=== PATIENT | female | born 1995 | race Native Hawaiian/Other Pacific Islander ===

== ENCOUNTER 2018-12-01 16:22 | Emergency (ER) | payer OTHER, SELFPAY ==
--- NOTE | 2018-12-01 16:24 | ED_ITS ---
HPI - <Vickey Duffy DO - Last Filed: 12/02/18 07:47> General Chief complaint: OB/Uterine Contractions Stated complaint: 5wks preg,passed a clot this morning Time Seen by Provider: 12/01/18 16:24 Source: patient and family Mode of arrival: Ambulatory Limitations: no limitations History of Present Illness HPI Narrative: 23-year-old female nonsmoker presents with her for e valuation of vaginal bleeding with small clots this morning. She is a at 5 weeks and had a miscarriage in April. She denies any fever chills and is not dizzy nor weak or lightheaded. She denies any cramping or pain. She states she had a beta quantitative HCG few days ago when it measured just over 200. She [facility] her [facility] [place] due to difficulty becoming pregn ant Complaint: vaginal bleeding Onset (ago): minute(s) Relieving factors: none Exacerbating factors: none Associated symptoms: denies other symptoms Vaginal discharge: none Vaginal bleeding: light and clots OB History - Current : no complications OB History - Previous Pregnancies: miscarriage care: followed by OB Review of Systems <Vickey Duffy DO - Last Filed: 12/02/18 07:47> Constitutional Constitutional: Denies chills, Denies fatigue, Denies fever(s), Denies frequent falls, Denies lethargy and Denies weakness Eyes Eyes: Denies change in vision, Denies eye discharge, Denies irritation and Denies loss of vision ENT Ears, Nose, Mouth, and Throat: Denies change in voice, Denies dizziness, Denies neck pain, Denies sore throat and Denies throat swelling Cardiovascular Cardiovascular: Denies chest pain, Denies irregular heart rhythm, Denies lightheadedness, Denies palpitations, Denies dyspnea, Denies dyspnea on exertion and Denies orthopnea Respiratory Respiratory: Denies cough, Denies dyspnea, Denies dyspnea on exertion and Denies wheezing Gastrointestinal Gastrointestinal: Denies abdominal pain, Denies change in bowel habits, Denies diarrhea, Denies nausea and Denies vomiting Genitourinary Genitourinary: Reports abnormal vaginal bleeding, Denies hematuria, Denies flank pain, Denies urinary incontinence and Denies urinary urgency Musculoskeletal Musculoskeletal: Denies back pain, Denies muscle weakness, Denies neck pain, Denies numbness and Denies tingling Integumentary/Breasts Skin/Breast: Denies pruritus, Denies erythema, Denies rash and Denies wounds Neurologic Neurologic: Denies behavioral changes, Denies confusion, Denies dizziness, Denies frequent falls, Denies loss of vision, Denies numbness, Denies tingling and Denies weakness Psychiatric Psychiatric: Denies anxiety, Denies behavioral changes, Denies confusion, Denies depression, Denies homicidal ideation and Denies suicidal ideation Endocrine Endocrine: Denies fatigue, Denies flushing and Denies palpitations Hematologic/Lymphatic Hematologic/Lymphatic: Denies easy bruising Allergic/Immunologic Allergic/Immunologic: Denies urticaria, Denies throat swelling and Denies wheezing PMFSH - <Vickey Duffy DO - Last Filed: 12/02/18 07:47> Past Medical History Medical history: Reports non-contributory Surgical history: Reports non-contributory Psychiatric history: Reports no psych history Family History Family history: Reports no significant family history Exam <Vickey Duffy DO - Last Filed: 12/02/18 07:47> Narrative Exam Narrative: GENERAL: [23] year old patient appears stated age. Well-nouris hed, well-developed patient, in mild distress. In good spirits, no suggestion of pain. Good color. HEAD: Atraumatic. Normocephalic. EYES: Pupils equal round and reactive. Extraocular motions intact. No scleral icterus. No injection or drainage. ENT: Nose without bleeding, purulent drainage. Throat without erythema, tonsillar hypertrophy or exudate. Airway patent. NECK: Trachea midline. Non tender CARDIOVASCULAR: Regular rate and rhythm without murmurs, gallops, or rubs. RESPIRATORY: Clear to auscultation. Breath sounds equal bilaterally. No wheezes, rales, or rhonchi. GASTROINTESTINAL: Abdomen soft, non-tender, nondistended. EXTREMITIES: No edema or joint tenderness. BACK: Nontender without deformity or crepitance. No flank tenderness. NEURO: AOx3. SKIN: No rash or erythema of visible areas Initial Vital Signs Initial Vital Signs: Vital Signs Temperature 97.9 F 12/01/18 16:43 Pulse Rate 92 H 12/01/18 16:43 Respiratory Rate 13 12/01/18 16:43 Blood Pressure 128/90 12/01/18 16:43 Pulse Oximetry 99 09/21/19 16:43 <Bola Ewing DO - Last Filed: 12/01/18 20:56> Initial Vital Signs Initial Vital Signs: Vital Signs Temperature 97.9 F 12/01/18 16:43 Pulse Rate 92 H 12/01/18 16:43 Respiratory Rate 13 12/01/18 16:43 Blood Pressure 128/90 12/01/18 16:43 Pulse Oximetry 99 12/01/18 16:43 Course <Vickey Duffy DO - Last Filed: 12/02/18 07:47> Orders Ordered: ED Orders 12/01/18 16:44 US OB <= 14 weeks fetus Stat 12/01/18 18:18 ABO RH Type Stat Complete Blood Count AUTO DIFF Stat HCG Quantitative Stat 12/01/18 18:55 UA dip and micro [Urinalysis and Microscopic] Stat Vital Signs Vital signs: Vital Signs - 8 hr 12/01/18 16:43 Temperature 97.9 F Pulse Rate 92 H Respiratory Rate 13 Blood Pressure 128/90 Pulse Oximetry 99 <Bola Ewing DO - Last Filed: 12/01/18 20:56> Orders Ordered: ED Orders 12/01/18 16:44 US OB <= 14 weeks fetus Stat 12/01/18 18:18 ABO RH Type Stat Complete Blood Count AUTO DIFF Stat HCG Quantitative Stat 12/01/18 18:55 UA dip and micro [Urinalysis and Microscopic] Stat Vital Signs Vital signs: Vital Signs - 8 hr 12/01/18 16:43 Temperature 97.9 F Pulse Rate 92 H Respiratory Rate 13 Blood Pressure 128/90 Pulse Oximetry 99 MDM - OB/Uterine Contractions <Vickey Duffy DO - Last Filed: 12/02/18 07:47> Lab Data Result diagrams: 12/01/18 18:18 Labs: Lab Results 12/01/18 12/01/18 12/01/18 Range/Units 18:18 18:18 18:18 WBC 10.6 (4.5-11.0) X10^3/uL RBC 4.93 (4.0-5.2) X10^6/uL Hgb 13.6 (12.0-16.0) g/dL Hct 41.0 (36-46) % MCV 83.1 (80-100) fL MCH 27.5 (26-34) PG MCHC 33.2 (30-36) % RDW 13.1 (11.6-14.8) % Plt Count 383 (150-400) X10^3/uL Neut % (Auto) 64.7 (50-75) % Lymph % (Auto) 27.4 (25-40) % [place] % (Auto) 5.9 (3-14) % Eos % (Auto) 1.7 L (2-4) % Baso % (Auto) 0.3 (0-2) % Neut # (Auto) 6900 (3498-6579) /uL Lymph # (Auto) 2900 (1720-3099) /uL [place] # (Auto) 600 (0-900) /uL Eos # (Auto) 200 (0-450) /uL Baso # (Auto) 0 (0-100) /uL HCG, Quant 547.11 mIU/mL Urine Color Urine Appearance Urine pH (4.5-8.0) Ur Specific [place] (1.000-1.035) Urine Protein (Negative) Urine Glucose (UA) (Negative) g/dL Urine Ketones (NEGATIVE) Urine Occult Blood (Negative) Urine Nitrate (Negative) Urine Bilirubin (NEGATIVE) Urine Urobilinogen (0.2) E.U./dL Ur Leukocyte Esterase (NEGATIVE) Urine RBC (0-5/HPF) Urine WBC (0-5/HPF) Ur Squamous Epith Cells (0-5/HPF) Amorphous Sediment Urine Bacteria (None) Ur Culture Indicated? Blood Type O Positive 12/01/18 Range/Units 18:55 WBC (4.5-11.0) X10^3/uL RBC (4.0-5.2) X10^6/uL Hgb (12.0-16.0) g/dL Hct (36-46) % MCV (80-100) fL MCH (26-34) PG MCHC (30-36) % RDW (11.6-14.8) % Plt Count (150-400) X10^3/uL Neut % (Auto) (50-75) % Lymph % (Auto) (25-40) % [place] % (Auto) (3-14) % Eos % (Auto) (2-4) % Baso % (Auto) (0-2) % Neut # (Auto) (1591-0978) /uL Lymph # (Auto) (0633-9271) /uL [place] # (Auto) (0-900) /uL Eos # (Auto) (0-450) /uL Baso # (Auto) (0-100) /uL HCG, Quant mIU/mL Urine Color Yellow Urine Appearance Clear Urine pH 7.5 (4.5-8.0) Ur Specific [place] 1.015 (1.000-1.035) Urine Protein Negative (Negative) Urine Glucose (UA) Negative (Negative) g/dL Urine Ketones Negative (NEGATIVE) Urine Occult Blood Trace-lysed (Negative) Urine Nitrate Negative (Negative) Urine Bilirubin Negative (NEGATIVE) Urine Urobilinogen 0.2 (0.2) E.U./dL Ur Leukocyte Esterase Negative (NEGATIVE) Urine RBC 1-5/hpf (0-5/HPF) Urine WBC 0-1/hpf (0-5/HPF) Ur Squamous Epith Cells 5-10 /hpf H (0-5/HPF) Amorphous Sediment 1+ Urine Bacteria None seen (None) Ur Culture Indicated? Cult not indicated Blood Type Imaging Data Pelvic US: Radiologist's impression: [place] [address] Ultrasound Report Signed Patient: [facility] Wilson [facility]#: [id number] : 1995Acct:[id number] Age/Sex: 23 / FDate of Service: 12/01/18 Loc: ED Accession Number: [id number] Procedure: US OB <= 14 weeks fetus Ordering Provider: Vickey Duffy D.O. PROCEDURE: US OB <= 14 WEEKS FETUS INDICATIONS: AT 5 WEEKS WITH BLEEDING OUTSIDE/PRIOR DATING DATA: Last menstrual period (LMP): 10/27/18. LMP-based estimated date of delivery (KATIE): 08/03/19. First dating scan (date and location): 12/01/18. Estimated date of delivery (KATIE) from first dating scan: 08/03/19. TECHNIQUE: Real-time scanning was performed of the fetus and maternal pelvic organs, with image documentation. Endovaginal scanning was also performed to better visualize the fetus and maternal ovaries. COMPARISON: None. FINDINGS: Embryo: An intrauterine gestational sac is seen within the fundus of the uterus, with a mean gestational sac diameter 3 mm, which corresponds to an estimated gestational age of 5 weeks 0 days. No pole is seen at this time. Measurement variability in dating: +/- 4 weeks by LMP, +/- 7 days by mean sac diameter (use before 6 weeks gestation if crown-rump length not able to be measured), +/- 5 days by crown-rump length (up to 8 weeks 6 days gestation), +/- 7 days by crown-rump length (up to 13 weeks 6 days gestation). Maternal organs: A small amount of free pelvic fluid can be seen. Ovaries are unremarkable, with a left corpus luteum and a right ovary dominant follicle. Limited images through the kidneys demonstrate no hydronephrosis. IMPRESSION: An apparent intrauterine gestational sac is seen. No significant discrepancy is found between the estimated gestational age based on these images and the estimated gestational age based upon the given date of the last menstrual period. Free fluid can be seen within the pelvis. Differential diagnosis includes an ectopic with a pseudo-gestational sac. Close clinical followup, with serial beta-hCG and serial ultrasound are michael mmended, as clinically appropriate. Dictated by: Jonathon Lau M.D. on 12/01/2018 at 17:57 Approved by: Jonathon Lau M.D. on 12/01/2018 at 18:00 <Bola Ewing DO - Last Filed: 12/01/18 20:56> Lab Data Labs: Lab Results 12/01/18 12/01/18 12/01/18 Range/Units 18:18 18:18 18:18 WBC 10.6 (4.5-11.0) X10^3/uL RBC 4.93 (4.0-5.2) X10^6/uL Hgb 13.6 (12.0-16.0) g/dL Hct 41.0 (36-46) % MCV 83.1 (80-100) fL MCH 27.5 (26-34) PG MCHC 33.2 (30-36) % RDW 13.1 (11.6-14.8) % Plt Count 383 (150-400) X10^3/uL Neut % (Auto) 64.7 (50-75) % Lymph % (Auto) 27.4 (25-40) % [place] % (Auto) 5.9 (3-14) % Eos % (Auto) 1.7 L (2-4) % Baso % (Auto) 0.3 (0-2) % Neut # (Auto) 6900 (8027-5950) /uL Lymph # (Auto) 2900 (6245-0172) /uL [place] # (Auto) 600 (0-900) /uL Eos # (Auto) 200 (0-450) /uL Baso # (Auto) 0 (0-100) /uL HCG, Quant 547.11 mIU/mL Urine Color Urine Appearance Urine pH (4.5-8.0) Ur Specific [place] (1.000-1.035) Urine Protein (Negative) Urine Glucose (UA) (Negative) g/dL Urine Ketones (NEGATIVE) Urine Occult Blood (Negative) Urine Nitrate (Negative) Urine Bilirubin (NEGATIVE) Urine Urobilinogen (0.2) E.U./dL Ur Leukocyte Esterase (NEGATIVE) Urine RBC (0-5/HPF) Urine WBC (0-5/HPF) Ur Squamous Epith Cells (0-5/HPF) Amorphous Sediment Urine Bacteria (None) Ur Culture Indicated? Blood Type O Positive 12/01/18 Range/Units 18:55 WBC (4.5-11.0) X10^3/uL RBC (4.0-5.2) X10^6/uL Hgb (12.0-16.0) g/dL Hct (36-46) % MCV (80-100) fL MCH (26-34) PG MCHC (30-36) % RDW (11.6-14.8) % Plt Count (150-400) X10^3/uL Neut % (Auto) (50-75) % Lymph % (Auto) (25-40) % [place] % (Auto) (3-14) % Eos % (Auto) (2-4) % Baso % (Auto) (0-2) % Neut # (Auto) (1498-2039) /uL Lymph # (Auto) (8192-9277) /uL [place] # (Auto) (0-900) /uL Eos # (Auto) (0-450) /uL Baso # (Auto) (0-100) /uL HCG, Quant mIU/mL Urine Color Yellow Urine Appearance Clear Urine pH 7.5 (4.5-8.0) Ur Specific [place] 1.015 (1.000-1.035) Urine Protein Negative (Negative) Urine Glucose (UA) Negative (Negative) g/dL Urine Ketones Negative (NEGATIVE) Urine Occult Blood Trace-lysed (Negative) Urine Nitrate Negative (Negative) Urine Bilirubin Negative (NEGATIVE) Urine Urobilinogen 0.2 (0.2) E.U./dL Ur Leukocyte Esterase Negative (NEGATIVE) Urine RBC 1-5/hpf (0-5/HPF) Urine WBC 0-1/hpf (0-5/HPF) Ur Squamous Epith Cells 5-10 /hpf H (0-5/HPF) Amorphous Sediment 1+ Urine Bacteria None seen (None) Ur Culture Indicated? Cult not indicated Blood Type MDM Narrative Medical decision making narrative: Received turned over from day provider. Reviewed patient's history and physical exam. Her ultrasound today shows a gestational sac but no yolk sac. This does correspond with a HCG quantitative level in the mid 500s. She states that a couple days ago her HCG quant was in the mid 200s. This does seem to have doubled over the past 2 days. I did not have this prior labs to review. She no longer has any bleeding. She did requi re fertility treatments in order to get . She has an appointment scheduled on Monday for repeat HCG already scheduled by her primary provider. We did discuss strict return precautions. We will have her keep that appointment on Monday to see if her hCG is appropriately elevating. Patient expressed understanding and agreement. She is Rh positive no indication for RhoGAM. Discharge Plan Departure Patient Disposition: Home Clinical Impression: Vaginal bleeding affecting early Discharge Date/Time: 12/01/18 20:55 Instructions: DI for -- Discomforts and Remedies Activity Restrictions/Additional Instructions: *You have been diagnosed with [vaginal bleeding in 1st trimester] *What to do: *Take medications as directed *Follow up with your primary care provider in 2-3 days, call for an appointment. Let them know you were seen in the Emergency Department and that we ask that you be seen in follow up *Return to ER if you should have any new, worsening or concerning symptoms, such as [pelvic pain, increased bleeding, fever over 101 or other bothersome symptoms] Your HCG quant today 12/01/2018 was 547. Keep your appointment that you have f or lab draw on Monday like we discussed.
[2018-12-01 16:43] VITALS: BP 128/90; PULSE 92; RESP 13; TEMP 36.6; O2SAT 99
--- NOTE | 2018-12-01 16:44 | DI.US.S_ITS ---
PROCEDURE: US OB <= 14 WEEKS FETUS INDICATIONS: AT 5 WEEKS WITH BLEEDING OUTSIDE/PRIOR DATING DATA: Last menstrual period (LMP): 10/27/18. LMP-based estimated date of delivery (KATIE): 08/03/19. First dating scan (date and location): 12/01/18. Estimated date of delivery (KATIE) from first dating scan: 08/03/19. TECHNIQUE: Real-time scanning was performed of the fetus and maternal pelvic organs, with image documentation. Endovaginal scanning was also performed to better visualize the fetus and maternal ovaries. COMPARISON: None. FINDINGS: Embryo: An intrauterine gestational sac is seen within the fundus of the uterus, with a mean gestational sac diameter 3 mm, which corresponds to an estimated gestational age of 5 weeks 0 days. No pole is seen at this time. Measurement variability in dating: +/- 4 weeks by LMP, +/- 7 days by mean sac diameter (use before 6 weeks gestation if crown-rump length not able to be measured), +/- 5 days by crown-rump length (up to 8 weeks 6 days gestation), +/- 7 days by crown-rump length (up to 13 weeks 6 days gestation). Maternal organs: A small amount of free pelvic fluid can be seen. Ovaries are unremarkable, with a left corpus luteum and a right ovary dominant follicle. Limited images through the kidneys demonstrate no hydronephrosis. IMPRESSION: An apparent intrauterine gestational sac is seen. No significant discrepancy is found between the estimated gestational age based on these images and the estimated gestational age based upon the given date of the last menstrual period. Free fluid can be seen within the pelvis. Differential diagnosis includes an ectopic with a pseudo-gestational sac. Close clinical followup, with serial beta-hCG and serial ultrasound are recommended, as clinically appropriate. Dictated by: Jonathon Lau M.D. on 12/01/2018 at 17:57 Approved by: Jonathon Lau M.D. on 12/01/2018 at 18:00
--- NOTE | 2018-12-01 17:07 | PC.NURSE ---
pt reports, she is 5 weeks , (+home test and +blood test) this afternoon, pt noticed large vaginal blood clot, concern for miscarrying, denies fever,vomiting, or pain. only has vaginal bleeding when wiping.
[2018-12-01 18:37] LABS: Add Manual Diff / Slide Review NO; Basophils Absolute Auto 0 /uL (0-100); Basophils Percent Auto 0.3 % (0-2); Eosinophils Absolute Auto 200 /uL (0-450); Eosinophils Percent Auto 1.7 % (2-4); Hemoglobin 13.6 g/dL (12.0-16.0); Lymphocytes Absolute Auto 2900 /uL (1100-4500); Lymphocytes Percent Auto 27.4 % (25-40); Mean Corpuscular HGB Conc 33.2 % (30-36); Mean Corpuscular Hemoglobin 27.5 PG (26-34); Mean Corpuscular Volume 83.1 fL (80-100); Monocytes Absolute Auto 600 /uL (0-900); Monocytes Percent Auto 5.9 % (3-14); Neutrophils Absolute Auto 6900 /uL (1500-7000); Neutrophils Percent Auto 64.7 % (50-75); Platelet Count 383 X10^3/uL (150-400); Red Blood Cell Count 4.93 X10^6/uL (4.0-5.2); Red Cell Distribution Width 13.1 % (11.6-14.8); White Blood Cell Count 10.6 X10^3/uL (4.5-11.0)
[2018-12-01 18:58] LABS: HCG Quantitative /Beta subunit 547.11 mIU/mL
[2018-12-01 19:52] LABS: Appearance Urine UA CLEAR; Bacteria Urine None Seen; Bilirubin Urine UA NEGATIVE (NEGATIVE); Color Urine UA YELLOW; Glucose Urine UA NEGATIVE (Negative); Ketones Urine UA NEGATIVE (NEGATIVE); Leukocyte Esterase Urine UA NEGATIVE (NEGATIVE); Nitrite Urine UA NEGATIVE (Negative); Occult Blood Urine UA TRACE-LYSED (Negative); Protein Urine UA NEGATIVE (Negative); Specific Gravity Urine UA 1.015 (1.000-1.035); Urobilinogen Urine UA 0.2 E.U./dL (0.2)
[2018-12-01 20:29] LABS: Amorphous Sediment Urine 1+; WBC Urine 0-1/HPF (0-5/HPF)
[2018-12-01 20:30] LABS: Culture Indicated Urine Cult Not Indicated; RBC Urine 1-5/HPF (0-5/HPF); Squamous Epithelial Cell Urine 5-10 /HPF (0-5/HPF); pH Urine UA 7.5 (4.5-8.0)
[2018-12-01 20:53] VITALS: BP 118/75; PULSE 82; RESP 16; O2SAT 97
== END 2018-12-01 20:55 | disposition home or self-care (01) ==
PROVIDERS: Emergency Medicine; Emergency Provider Emergency Medicine
DX: O20.9 Hemorrhage in early pregnancy, unspecified (principal)
CPT/HCPCS: 36415; 76801; 76830; 81001; 84702; 85025; 86900; 86901; 99282; 99284

== ENCOUNTER 2018-12-28 11:00 | Emergency (ER) | payer OTHER, SELFPAY ==
[2018-12-28 11:14] VITALS: BP 117/64; PULSE 64; RESP 18; TEMP 36.3; O2SAT 100; BMI 36.8
--- NOTE | 2018-12-28 11:23 | ED.PREGNANCY ---
HPI - General Chief complaint: Urogenital-Female Stated complaint: 8 wks , had a gushing Time Seen by Provider: 12/28/18 11:05 Source: patient Mode of arrival: Ambulatory Limitations: no limitations History of Present Illness HPI Narrative: Patient is a 23-year-old female currently 8 weeks is presenting with gush of clear watery vaginal discharge. She has no blood she has very minimal cramping. She has been trying very hard to get they were talking about I URI and IV after however this is spontaneous now actual . She was instructed by her OB to come to the ED if she should have any abnormal discharge. She otherwise is feeling very hungry slightly nauseous no vomiting. Related Data Home Medications Medication Instructions Recorded Confirmed PNV cmb#95-ferrous fumarate-FA 1 tab PO DAILY 12/28/18 12/28/18 [] levothyroxine [Synthroid] 50 mcg PO DAILY 12/28/18 12/28/18 metformin 1,000 mg PO BID 12/28/18 penicillin G benzathine [Bicillin 0 unit IM .ONCE 12/28/18 12/28/18 L-A] Allergies Allergy/AdvReac Type Severity Reaction Status Date / Time No Known Drug Allergies Allergy Verified 12/28/18 11:14 Review of Systems Review of Systems Narrative: GENERAL: Denies chills, fatigue, malaise, fever, sweats, travel HEENT: Denies sinus pain, ear pain, sore throat, difficulty swallowing, neck pain RESPIRATORY: Denies dyspnea, cough, wheezing, hemoptysis, sputum. CARDIOVASCULAR: Denies chest pain, palpitations, orthopnea, edema GASTROINTESTINAL: Denies nausea, vomiting, abdominal pain, diarrhea, constipation, melena. 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 MUSCULOSKELETAL: Denies weakness, joint pain, or bony pain SKIN: No rash, no erythema, no pruritus NEUROLOGIC: Denies weakness, dizziness, headache, numbness, change in speech, confusion PSYCHIATRIC: No concerning psychosocial issues. 12 point review of systems is negative except for those stated above and HPI PMFSH - Past Medical History Medical history: Reports non-contributory Surgical history: Reports non-contributory Psychiatric history: Reports no psych history Family History Family history: Reports no significant family history Exam Initial Vital Signs Initial Vital Signs: Vital Signs Temperature 97.4 F L 12/28/18 11:14 Pulse Rate 64 12/28/18 11:14 Respiratory Rate 18 12/28/18 11:14 Blood Pressure 117/64 12/28/18 11:14 Pulse Oximetry 100 12/28/18 11:14 GENERAL: Well-appearing, well-nourished and in no acute distress. HEENT: Head atraumatic,EOMI, pupils reactive, face symmetric, moist mucous membranes CARDIOVASCULAR: Regular rate and rhythm without murmurs, rubs or gallops. RESPIRATORY: Breath sounds equal bilaterally, no wheezes rales or rhonchi. ABDOMEN: Soft, nontender. Normoactive bowel sounds all 4 quadrants. No guarding or rebound. EXTREMITIES: Normal range of motion, no clubbing or edema. Neurovascularly intact NEUROLOGICAL: Alert and oriented x4.Normal gait and speech. Cranial nerves II through XII grossly intact. SKIN: Warm, dry, no laceration, no petechiae, no rashes or lesions. Course Orders Ordered: ED Orders 12/28/18 11:34 Urinalysis and Microscopic Stat Vital Signs Vital signs: Vital Signs - 8 hr 12/28/18 11:14 12/28/18 12:06 Temperature 97.4 F L Pulse Rate 64 86 Respiratory Rate 18 20 Blood Pressure 117/64 100/68 Pulse Oximetry 100 100 MDM - OB/Uterine Contractions Lab Data Labs: Lab Results 12/28/18 Range/Units 11:34 Urine Color Yellow Urine Appearance Clear Urine pH 6.0 (4.5-8.0) Ur Specific [place] 1.015 (1.000-1.035) Urine Protein Negative (Negative) Urine Glucose (UA) Negative (Negative) g/dL Urine Ketones 2+ H (NEGATIVE) Urine Occult Blood Negative (Negative) Urine Nitrate Negative (Negative) Urine Bilirubin Negative (NEGATIVE) Urine Urobilinogen 0.2 (0.2) E.U./dL Ur Leukocyte Esterase Negative (NEGATIVE) Urine RBC None seen (0-5/HPF) Urine WBC None seen (0-5/HPF) Urine Bacteria None seen (None) Ur Culture Indicated? Cult not indicated Micro UA Comment Microscopic normal Point of Care Testing Test Results Positive Urine Dip Bedside Urine Glucose Negative Bedside Urine Bilirubin - Negative Bedside Urine Ketone +++ 80 Urine Specific [place] 1.020 Bedside Urine Occult Blood - Negative Bedside Urine pH 6.0 Bedside Urine Protein - Negative Bedside Urine Urobilinogen - Negative Bedside Urine Nitrite - Negative Bedside Urine Leukocytes - Negative Esterase MDM Narrative Medical decision making narrative: The patient has absolutely no vaginal bleeding no cramping. She was offered ultrasound she had 1 last week and has another one in 2 weeks with her OB. No sign of UTI. Discharge Plan Departure Patient Disposition: Home Clinical Impression: Qualifiers: Weeks of gestation: 8 weeks Qualified Code(s): Z3A.08 - 8 weeks gestation of Discharge Date/Time: 12/28/18 12:06 Activity Restrictions/Additional Instructions: *You have been diagnosed with *What to do: No sign infection *Continue to take medications as directed *Follow up with your primary care provider in 2-3 days *Return to ER if you should have vaginal bleeding, abdominal cramping or any new, worsening or concerning symptoms Prescriptions: No Action levothyroxine [Synthroid] 50 mcg tablet 50 mcg PO DAILY RF: 0 metformin 1,000 mg tablet 1,000 mg PO BID RF: 0 Bicillin L-A 1,200,000 unit/2 mL syringe 0 unit IM .ONCE RF: 0 PNV cmb#95-ferrous fumarate-FA [] 28 mg iron- 800 mcg tablet 1 tab PO DAILY RF: 0
[2018-12-28 12:04] LABS: Bacteria Urine None Seen; RBC Urine None Seen (0-5/HPF); WBC Urine None Seen (0-5/HPF)
[2018-12-28 12:06] VITALS: BP 100/68; PULSE 86; RESP 20; O2SAT 100
[2018-12-28 12:06] LABS: Appearance Urine UA CLEAR; Bilirubin Urine UA NEGATIVE (NEGATIVE); Color Urine UA YELLOW; Glucose Urine UA NEGATIVE (Negative); Ketones Urine UA 2+ (NEGATIVE); Leukocyte Esterase Urine UA NEGATIVE (NEGATIVE); Nitrite Urine UA NEGATIVE (Negative); Occult Blood Urine UA NEGATIVE (Negative); Protein Urine UA NEGATIVE (Negative); Specific Gravity Urine UA 1.015 (1.000-1.035); Urobilinogen Urine UA 0.2 E.U./dL (0.2)
[2018-12-28 12:17] LABS: Culture Indicated Urine Cult Not Indicated; Urine Comments Microscopic Normal
== END 2018-12-28 12:06 | disposition home or self-care (01) ==
PROVIDERS: Emergency Provider Emergency Medicine
DX: O26.899 Other specified pregnancy related conditions, unspecified trimester (principal); N89.8 Other specified noninflammatory disorders of vagina; Z3A.08 8 weeks gestation of pregnancy
CPT/HCPCS: 81001; 81003; 81025; 99282; 99283

== ENCOUNTER 2019-04-28 18:49 | Outpatient (CLI) | payer OTHER, SELFPAY ==
--- NOTE | 2019-04-28 19:06 | PM.OBTRLD ---
Visit Information Visit Information Date of evaluation: 04/28/19 On-call OB Provider: Naina Roy Reason for Evaluation: Yes non-stress test non-stress test reason: decreased movement PFSH Social History Smoking Status: Never smoker Evaluation Evaluation Baseline heart rate: 145 Variability: Moderate (11-25) monitor accelerations: Present monitor decelerations: Absent Contraction Frequency (minutes): 0 Category of Tracing: I Diagnosis, Plan/Disposition Final Diagnosis (1) Decreased movement: Current Visit: Yes Status: Acute (2) 25 weeks gestation of : Current Visit: Yes Status: Acute Plan/Disposition Plan: Reactive nonstress test for 25 weeker with movement perceived by the patient now. Reassurance. OB Disposition: home
== END 2019-04-28 19:45 | disposition home or self-care (01) ==
LOC: LABOR 20:02 → OB 04-29 09:38
PROVIDERS: Referring Provider Specialist; Visit Provider Specialist
DX: O36.8120 Decreased fetal movements, second trimester, not applicable or unspecified (principal); Z3A.25 25 weeks gestation of pregnancy
CPT/HCPCS: 59025; 59050; G0378; G0379

== ENCOUNTER 2019-07-19 09:01 | Outpatient (CLI) | payer OTHER, SELFPAY ==
--- NOTE | 2019-07-19 10:33 | PM.OBTRLD ---
Visit Information Visit Information Date of evaluation: 07/19/19 On-call OB Provider: Sonali Palmer Reason for Evaluation: Yes other Comments/Additional reasons for admission: 23YO @ 37 wks 3 days here for evaluation s/p fall exiting shower @ 0730 this morning. Primary impact was to right knee and abdomen. Has been feeling lots of FM since fall. no cramping, abdominal pain or bleeding. No other complaints or concerns. Normally seen @ for care as she has a preexisting heart condition. Her next appointment with is 07/23/19. Vital Signs Vital Signs: BP 119/82, HR101, RR16, T97.6 PFS Social History marital status: household members: spouse lives independently: Yes caregiver/support person: No Smoking Status: Never smoker Review of Systems Review of Systems ROS: Yes All systems reviewed with the patient and are negative except as otherwise documented Evaluation Evaluation Baseline heart rate: 145 Variability: Moderate (11-25) monitor accelerations: Present monitor decelerations: Absent Contraction Frequency (minutes): 0 Category of Tracing: I Non-invasive Membranes Rupture Test: negative Diagnosis, Plan/Disposition Plan/Disposition Plan: Reassurance given for reactive NST and no contractions for 3 hours s/p fall. Reviewed routine fall precautions, rest/ice/compression/elevation for right knee PRN. May take Tylenol for pain. Follow-up w/ as previously scheduled. OB Disposition: home
== END 2019-07-19 10:40 | disposition home or self-care (01) ==
LOC: LABOR 09:26 → OB 07-22 09:33
PROVIDERS: Referring Provider Nurse Practitioner Obstetrics & Gynecology; Visit Provider Nurse Practitioner Obstetrics & Gynecology
DX: O99.413 Diseases of the circulatory system complicating pregnancy, third trimester (principal); N89.8 Other specified noninflammatory disorders of vagina; W18.2XXA Fall in (into) shower or empty bathtub, initial encounter; Z3A.37 37 weeks gestation of pregnancy
CPT/HCPCS: 59025; 59050; 84112; G0378; G0379